=== PATIENT | male | born 1960 | race Caucasian/White ===

== ENCOUNTER 2023-01-22 14:38 | Emergency (ER) | payer OTHER, MEDICARE, MEDICAID ==
[~2023-01-22] VITALS: Ht 190.5 cm; Wt 81.8 kg
[~2023-01-22 14:38] MED LIST: DIPH-423 PO; ESOM40CA PO; MULT-1085 PO; NO HOME MEDS; OMEP20CA15 PO; PANT40TA39 PO; PRED20TA PO
[2023-01-22 14:56] VITALS: BP 119/72
--- NOTE | 2023-01-22 15:08 | NUR ---
ATTEMPT EKG, PT NOT IN LOBBY OR TRIAGE. PER MEDIC, PT WAS SEEN WALKING OUT OF ER AND ACROSS THE STREET. NO EKG COMPLETED.
== END 2023-01-22 15:09 | disposition left against medical advice (07) ==
LOC: ER 14:38
DX: R07.9 Chest pain, unspecified (principal); Z53.21 Procedure and treatment not carried out due to patient leaving prior to being seen by health care provider

== ENCOUNTER 2023-01-23 12:32 | Emergency (ER) | payer OTHER, MEDICAID ==
--- NOTE | 2023-01-23 13:08 | NUR ---
NOT IN LOBBY.
--- NOTE | 2023-01-23 13:31 | NUR ---
NOT IN LOBBY.
== END 2023-01-23 16:26 | disposition left against medical advice (07) ==
LOC: ER 12:32
DX: F10.129 Alcohol abuse with intoxication, unspecified (principal); I11.9 Hypertensive heart disease without heart failure; K21.9 Gastro-esophageal reflux disease without esophagitis; G89.29 Other chronic pain; M54.9 Dorsalgia, unspecified; F41.9 Anxiety disorder, unspecified; F15.10 Other stimulant abuse, uncomplicated; Z88.2 Allergy status to sulfonamides; Z88.8 Allergy status to other drugs, medicaments and biological substances; Z59.00 Homelessness unspecified; Z56.0 Unemployment, unspecified; Y90.9 Presence of alcohol in blood, level not specified
CPT/HCPCS: 99283

== ENCOUNTER 2023-01-28 12:05 | Emergency (ER) | payer OTHER ==
[~2023-01-28] VITALS: Ht 190.5 cm; Wt 81.8 kg
[2023-01-28 12:10] VITALS: BP 131/98
[2023-01-28 12:44] LABS: BASOPHILS # (AUTO) 0.1 X10'3 (0-0.2); BASOPHILS % (AUTO) 0.7 % (0-1); EOSINOPHILS # (AUTO) 0.1 X10'3 (0-0.9); EOSINOPHILS % (AUTO) 0.9 % (0-6); HEMATOCRIT 47.9 % (42.0-52.0); HEMOGLOBIN 16.4 g/dl (14.0-17.9); LYMPHOCYTES # (AUTO) 2.7 X10'3 (1.1-4.8); LYMPHOCYTES % (AUTO) 34.1 % (21-51); MEAN CORPUSCULAR HEMOGLOBIN 31.5 PG (27.0-31.0); MEAN CORPUSCULAR HGB CONC 34.3 g/dL (33.0-36.5); MEAN CORPUSCULAR VOLUME 91.9 FL (78-98); MEAN PLATELET VOLUME 8.7 FL (7.4-10.4); MONOCYTES # (AUTO) 0.6 X10'3 (0-0.9); MONOCYTES % (AUTO) 7.8 % (2-12); NEUTROPHILS # (AUTO) 4.4 X10'3 (1.8-7.7); NEUTROPHILS % (AUTO) 56.5 % (42-75); PLATELET COUNT 141 X10'3 (140-440); RED BLOOD COUNT 5.22 X10'6 (4.70-6.10); RED CELL DISTRIBUTION WIDTH 14.5 % (11.5-14.5); WHITE BLOOD COUNT 7.8 X10'3 (4.5-11.0)
[2023-01-28 12:54] LABS: ALANINE AMINOTRANSFERASE 58 U/L (12-78); ALBUMIN 3.6 G/DL (3.4-5.0); ALBUMIN/GLOBULIN RATIO 1.2 (1.1-1.5); ALKALINE PHOSPHATASE 82 IU/L (46-116); ANION GAP 13 (8-16); BLOOD UREA NITROGEN 4 MG/DL (7-18); BUN/CREATININE RATIO 7.3 (10.0-20.0); CALCIUM 11.4 MG/DL (8.5-10.1); CHLORIDE 91 MMOL/L (99-107); CREATININE 0.55 MG/DL (0.60-1.10); GLUCOSE 260 MG/DL (70-104); SODIUM 131 MMOL/L (135-145); TOTAL CARBON DIOXIDE 27.3 MMOL/L (24-32); TOTAL PROTEIN 6.7 G/DL (6.4-8.2); eGFR > 90 ML/MIN
[2023-01-28 13:03] LABS: ASPARTATE AMINO TRANSFERASE 84 U/L (10-37); POTASSIUM 3.8 MMOL/L (3.5-5.1)
== END 2023-01-28 12:52 | disposition left against medical advice (07) ==
LOC: ER 12:05
DX: R07.9 Chest pain, unspecified (principal); Z53.21 Procedure and treatment not carried out due to patient leaving prior to being seen by health care provider
CPT/HCPCS: 36415; 71045; 80053; 83880; 84484; 85025; 93005; 99281; J7030

== ENCOUNTER 2023-02-01 09:44 | Emergency (ER) | payer BC, MEDICAID ==
[~2023-02-01] VITALS: Ht 190.5 cm; Wt 79.0 kg
[2023-02-01 09:46] VITALS: BP 130/88
[2023-02-01] MEDS ORDERED: normal saline 1000ml 1,000 ML IV ONE (10:30)
[2023-02-01] MEDS ORDERED: insulin Lispro (HumaLOG) vial - multi-dose SQ SCH ×2 (10:30→11:35)
--- NOTE | 2023-02-01 11:47 | NUR ---
dcd NS order.
--- NOTE | 2023-02-01 12:39 | NUR ---
Spoke with smith to see if insurance can replace patient's wheelchair, NAN states it is not due for reoplacement yet and that he needs to [facility].
== END 2023-02-01 12:42 | disposition home or self-care (01) ==
LOC: ER 09:46
DX: S09.90XA Unspecified injury of head, initial encounter (principal); R73.9 Hyperglycemia, unspecified; I10 Essential (primary) hypertension; J44.9 Chronic obstructive pulmonary disease, unspecified; K21.9 Gastro-esophageal reflux disease without esophagitis; F15.20 Other stimulant dependence, uncomplicated; Z88.2 Allergy status to sulfonamides; Z56.0 Unemployment, unspecified; Z59.00 Homelessness unspecified; W19.XXXA Unspecified fall, initial encounter; Y93.89 Activity, other specified; Y92.89 Other specified places as the place of occurrence of the external cause; Y99.8 Other external cause status
CPT/HCPCS: 70450; 82948; 99284; J1815; 96372

== ENCOUNTER 2023-02-11 09:31 | Emergency (ER) | payer BC, MEDICAID ==
[~2023-02-11] VITALS: Ht 190.5 cm; Wt 84.1 kg
[2023-02-11 09:33] VITALS: BP 159/107
--- NOTE | 2023-02-11 09:46 | NUR ---
Pt arrived w/ clothes that were socked in urine. Pt was asissted into clean clothes. Clothing was placed into bags.
--- NOTE | 2023-02-11 09:55 | NUR ---
[facility]. ETA 15-20 MINS
== END 2023-02-11 10:11 | disposition home or self-care (01) ==
LOC: ER 09:32
DX: Z00.00 Encounter for general adult medical examination without abnormal findings (principal); R52 Pain, unspecified; I10 Essential (primary) hypertension; J44.9 Chronic obstructive pulmonary disease, unspecified; K21.9 Gastro-esophageal reflux disease without esophagitis; F15.20 Other stimulant dependence, uncomplicated; Z88.2 Allergy status to sulfonamides; Z59.00 Homelessness unspecified; Z56.0 Unemployment, unspecified
CPT/HCPCS: 99284

== ENCOUNTER 2023-02-11 12:31 | Emergency (ER) | payer BC, MEDICAID ==
[~2023-02-11] VITALS: Ht 182.9 cm; Wt 72.7 kg
[2023-02-11 12:47] VITALS: BP 143/94
== END 2023-02-11 12:35 | disposition left against medical advice (07) ==
LOC: ER 12:32
DX: R07.89 Other chest pain (principal); Z53.21 Procedure and treatment not carried out due to patient leaving prior to being seen by health care provider
CPT/HCPCS: 93005; 99281

== ENCOUNTER 2023-02-18 05:59 | Emergency (ER) | payer BC, MEDICAID ==
[~2023-02-18] VITALS: Ht 190.5 cm; Wt 79.5 kg
--- NOTE | 2023-02-18 07:07 | NUR ---
I spent at least 15 minutes ealier to clean him up as patient covered with stool all over him including his wheelchair. Sponge bath done and sanitized patient hands with county historian. Patient has multiple wounds on his body. Patient was discouraged on touching his wounds.
[2023-02-18] MEDS ORDERED: normal saline 1000ML IV soln IVB ONE (07:40)
[2023-02-18] MEDS ORDERED: cephalexin 250mg capsule PO ONE (08:20)
[2023-02-18] MEDS ORDERED: pantoprazole 40mg Tablet.DR PO ONE (08:20)
[2023-02-18 08:26] LABS: ALANINE AMINOTRANSFERASE 45 U/L (12-78); ALBUMIN 3.1 G/DL (3.4-5.0); ALBUMIN/GLOBULIN RATIO 0.7 (1.1-1.5); ALKALINE PHOSPHATASE 111 IU/L (46-116); ANION GAP 11 (8-16); ASPARTATE AMINO TRANSFERASE 44 U/L (10-37); BILIRUBIN,TOTAL 0.4 MG/DL (0.1-1.0); BLOOD UREA NITROGEN 4 MG/DL (7-18); BUN/CREATININE RATIO 6.7 (10.0-20.0); CALCIUM 9.9 MG/DL (8.5-10.1); CHLORIDE 96 MMOL/L (99-107); GLUCOSE 256 MG/DL (70-104); POTASSIUM 3.9 MMOL/L (3.5-5.1); SODIUM 139 MMOL/L (135-145); TOTAL CARBON DIOXIDE 32.1 MMOL/L (24-32); TOTAL PROTEIN 7.3 G/DL (6.4-8.2); eGFR > 90 ML/MIN
[2023-02-18 08:53] LABS: BASOPHILS # (AUTO) 0.1 X10'3 (0-0.2); BASOPHILS % (AUTO) 0.8 % (0-1); EOSINOPHILS # (AUTO) 0.1 X10'3 (0-0.9); EOSINOPHILS % (AUTO) 1.1 % (0-6); HEMATOCRIT 49.9 % (42.0-52.0); HEMOGLOBIN 17.2 g/dl (14.0-17.9); LYMPHOCYTES % (AUTO) 26.1 % (21-51); MEAN CORPUSCULAR HGB CONC 34.4 g/dL (33.0-36.5); MEAN CORPUSCULAR VOLUME 93.2 FL (78-98); MEAN PLATELET VOLUME 7.4 FL (7.4-10.4); MONOCYTES # (AUTO) 0.7 X10'3 (0-0.9); MONOCYTES % (AUTO) 8.7 % (2-12); NEUTROPHILS # (AUTO) 4.7 X10'3 (1.8-7.7); NEUTROPHILS % (AUTO) 63.3 % (42-75); PLATELET COUNT 166 X10'3 (140-440); RED BLOOD COUNT 5.36 X10'6 (4.70-6.10); RED CELL DISTRIBUTION WIDTH 16.1 % (11.5-14.5); WHITE BLOOD COUNT 7.5 X10'3 (4.5-11.0)
--- NOTE | 2023-02-18 09:21 | NUR ---
Wound pictures taken with patient verbal permission.
--- NOTE | 2023-02-18 10:07 | NUR ---
Paged [facility] [employer] ER bed 1 RE: Felix Huizar. Dr. Jurado requesting a home health care social worker to see this patient when you get a chance. Thanks
[2023-02-18 10:43] VITALS: BP 120/87
[2023-02-18] MEDS ORDERED: CEPH-585 PO (13:13)
--- NOTE | 2023-02-18 13:38 | NUR ---
Repaged the Healthcare Specialist
== END 2023-02-18 13:50 | disposition home or self-care (01) ==
LOC: ER 05:59
DX: R07.89 Other chest pain (principal); L03.317 Cellulitis of buttock; L03.116 Cellulitis of left lower limb; L98.499 Non-pressure chronic ulcer of skin of other sites with unspecified severity; I10 Essential (primary) hypertension; J44.9 Chronic obstructive pulmonary disease, unspecified; K21.9 Gastro-esophageal reflux disease without esophagitis; F15.90 Other stimulant use, unspecified, uncomplicated; Z88.2 Allergy status to sulfonamides; Z59.00 Homelessness unspecified; Z56.0 Unemployment, unspecified
CPT/HCPCS: 36415; 71045; 80053; 83880; 84484; 85025; 93005; 96360; 99285; J7030

== ENCOUNTER 2023-02-19 10:55 | Emergency (ER) | payer BC, MEDICAID ==
[~2023-02-19 10:55] MED LIST changes: +CEPH-585 PO
== END 2023-02-19 11:31 | disposition left against medical advice (07) ==
LOC: ER 10:55
DX: R53.1 Weakness (principal); Z53.21 Procedure and treatment not carried out due to patient leaving prior to being seen by health care provider

== ENCOUNTER 2023-02-22 02:21 | Emergency (ER) | payer BC, MEDICAID ==
[~2023-02-22] VITALS: Ht 190.5 cm; Wt 81.8 kg
[2023-02-22 03:47] LABS: BASOPHILS % (AUTO) 0.6 % (0-1); EOSINOPHILS # (AUTO) 0.1 X10'3 (0-0.9); HEMATOCRIT 42.4 % (42.0-52.0); HEMOGLOBIN 14.6 g/dl (14.0-17.9); LYMPHOCYTES # (AUTO) 1.2 X10'3 (1.1-4.8); LYMPHOCYTES % (AUTO) 18.4 % (21-51); MEAN CORPUSCULAR HEMOGLOBIN 31.9 PG (27.0-31.0); MEAN CORPUSCULAR HGB CONC 34.3 g/dL (33.0-36.5); MEAN PLATELET VOLUME 7.1 FL (7.4-10.4); MONOCYTES # (AUTO) 0.5 X10'3 (0-0.9); MONOCYTES % (AUTO) 6.8 % (2-12); NEUTROPHILS # (AUTO) 4.9 X10'3 (1.8-7.7); NEUTROPHILS % (AUTO) 73.2 % (42-75); PLATELET COUNT 167 X10'3 (140-440); RED BLOOD COUNT 4.56 X10'6 (4.70-6.10); RED CELL DISTRIBUTION WIDTH 15.8 % (11.5-14.5); WHITE BLOOD COUNT 6.7 X10'3 (4.5-11.0)
[2023-02-22 04:11] LABS: ALANINE AMINOTRANSFERASE 38 U/L (12-78); ALBUMIN 2.6 G/DL (3.4-5.0); ALBUMIN/GLOBULIN RATIO 0.7 (1.1-1.5); ALKALINE PHOSPHATASE 98 IU/L (46-116); ANION GAP 9 (8-16); ASPARTATE AMINO TRANSFERASE 59 U/L (10-37); BILIRUBIN,TOTAL 0.5 MG/DL (0.1-1.0); BLOOD UREA NITROGEN 2 MG/DL (7-18); BUN/CREATININE RATIO 3.4 (10.0-20.0); CALCIUM 9.1 MG/DL (8.5-10.1); CHLORIDE 97 MMOL/L (99-107); CREATININE 0.58 MG/DL (0.60-1.10); GLUCOSE 260 MG/DL (70-104); SODIUM 140 MMOL/L (135-145); TOTAL CARBON DIOXIDE 34.2 MMOL/L (24-32); TOTAL PROTEIN 6.2 G/DL (6.4-8.2); eGFR > 90 ML/MIN
[2023-02-22] MEDS ORDERED: POTA-207 PO (04:30)
[2023-02-22] MEDS ORDERED: POTASSIUM BICARB 20meq eff tab 20 MEQ TABLET.EFF PO ONE (04:30)
[2023-02-22 04:48] VITALS: BP 110/62
== END 2023-02-22 04:51 | disposition home or self-care (01) ==
LOC: ER 02:22
DX: R07.89 Other chest pain (principal); E87.6 Hypokalemia; I10 Essential (primary) hypertension; J44.9 Chronic obstructive pulmonary disease, unspecified; K21.9 Gastro-esophageal reflux disease without esophagitis; F15.20 Other stimulant dependence, uncomplicated; Z88.2 Allergy status to sulfonamides; Z59.00 Homelessness unspecified; Z56.0 Unemployment, unspecified
CPT/HCPCS: 36415; 71045; 80053; 83880; 84484; 85025; 93005; 99285

== ENCOUNTER 2023-05-19 23:33 | Emergency (ER) | payer BC, MEDICAID ==
[~2023-05-19] VITALS: Ht 193 cm; Wt 77.3 kg
[2023-05-19 23:40] VITALS: BP 125/74; PULSE 96; TEMP 98.1
[2023-05-19 23:56] VITALS: O2SAT 97
[2023-05-19 23:57] VITALS: RESP 18
--- NOTE | 2023-05-20 00:15 | NUR ---
PT REFUSING LAB DRAW.
--- NOTE | 2023-05-20 00:16 | NUR ---
PROVIDER NOTIFIED OF REFUSAL.
[2023-05-20] MEDS ORDERED: mag hydrox/Alum hydrox/simeth 30ml oral suspension PO ONE (02:15)
[2023-05-20] MEDS ORDERED: LIDOcaine Viscous 15ml cup MM ONE (02:15)
[2023-05-20] MEDS ORDERED: pantoprazole 40mg Tablet.DR PO ONE (02:15)
[2023-05-20] MEDS ORDERED: insulin regular, human 10 units/0.1 ml syringe SQ ONE (02:15)
== END 2023-05-20 04:04 | disposition home or self-care (01) ==
LOC: ER 23:34
DX: K21.9 Gastro-esophageal reflux disease without esophagitis (principal); R10.9 Unspecified abdominal pain; I10 Essential (primary) hypertension; J44.9 Chronic obstructive pulmonary disease, unspecified; E11.9 Type 2 diabetes mellitus without complications; F17.200 Nicotine dependence, unspecified, uncomplicated; F15.90 Other stimulant use, unspecified, uncomplicated; Z88.2 Allergy status to sulfonamides; Z88.8 Allergy status to other drugs, medicaments and biological substances; Z79.2 Long term (current) use of antibiotics; Z79.899 Other long term (current) drug therapy
CPT/HCPCS: 71045; 82948; 93005; 99284; J1815

== ENCOUNTER 2023-05-20 18:44 | Emergency (ER) | payer BC, MEDICAID ==
[2023-05-20] MEDS ORDERED: normal saline 1000ML IV soln IVB ONE (19:00)
== END 2023-05-20 19:31 | disposition left against medical advice (07) ==
LOC: ER 18:44
DX: F10.129 Alcohol abuse with intoxication, unspecified (principal); Y90.9 Presence of alcohol in blood, level not specified; R73.9 Hyperglycemia, unspecified; I11.9 Hypertensive heart disease without heart failure; K21.9 Gastro-esophageal reflux disease without esophagitis; E11.9 Type 2 diabetes mellitus without complications; G89.29 Other chronic pain; M54.9 Dorsalgia, unspecified; F31.9 Bipolar disorder, unspecified; F15.10 Other stimulant abuse, uncomplicated; Z59.00 Homelessness unspecified; Z56.0 Unemployment, unspecified
CPT/HCPCS: 93005; 99283

== ENCOUNTER 2023-05-22 08:52 | Emergency (ER) | payer BC, MEDICAID ==
[~2023-05-22] VITALS: Ht 193 cm; Wt 78.2 kg
[2023-05-22 08:55] VITALS: BP 141/87; PULSE 95; RESP 14; TEMP 98.2; O2SAT 95
[2023-05-22] MEDS ORDERED: normal saline 1000ml 1,000 ML IV ONE (09:20)
[2023-05-22] MEDS ORDERED: pantoprazole 40MG/NS 100ML BAG 100 ML IV SCH (09:25)
[2023-05-22 09:31] LABS: BASOPHILS % (AUTO) 0.4 % (0-1); EOSINOPHILS % (AUTO) 0.3 % (0-6); HEMATOCRIT 43.4 % (42.0-52.0); HEMOGLOBIN 14.7 g/dl (14.0-17.9); LYMPHOCYTES # (AUTO) 1.3 X10'3 (1.1-4.8); LYMPHOCYTES % (AUTO) 16.8 % (21-51); MEAN CORPUSCULAR HEMOGLOBIN 30.4 PG (27.0-31.0); MEAN CORPUSCULAR VOLUME 89.3 FL (78-98); MEAN PLATELET VOLUME 7.6 FL (7.4-10.4); MONOCYTES # (AUTO) 0.3 X10'3 (0-0.9); NEUTROPHILS # (AUTO) 6.1 X10'3 (1.8-7.7); NEUTROPHILS % (AUTO) 78.5 % (42-75); PLATELET COUNT 170 X10'3 (140-440); RED BLOOD COUNT 4.86 X10'6 (4.70-6.10); RED CELL DISTRIBUTION WIDTH 13.8 % (11.5-14.5); WHITE BLOOD COUNT 7.8 X10'3 (4.5-11.0)
[2023-05-22 10:02] LABS: ALANINE AMINOTRANSFERASE 30 U/L (12-78); ALBUMIN 3.3 G/DL (3.4-5.0); ALKALINE PHOSPHATASE 95 IU/L (46-116); ANION GAP 17 (8-16); ASPARTATE AMINO TRANSFERASE 35 U/L (10-37); BILIRUBIN,TOTAL 0.5 MG/DL (0.1-1.0); BLOOD UREA NITROGEN 3 MG/DL (7-18); CALCIUM 8.5 MG/DL (8.5-10.1); CHLORIDE 91 MMOL/L (99-107); GLUCOSE 396 MG/DL (70-104); SODIUM 134 MMOL/L (135-145); TOTAL CARBON DIOXIDE 26.4 MMOL/L (24-32); TOTAL PROTEIN 6.7 G/DL (6.4-8.2); eCRCL 139 ML/MIN; eGFR > 90 ML/MIN
[2023-05-22 10:10] LABS: POTASSIUM 2.9 MMOL/L (3.5-5.1)
[2023-05-22 10:11] LABS: ETHANOL 299 MG/DL (<10); LIPASE < 50 U/L (73-393); MAGNESIUM 1.6 MG/DL (1.5-2.4)
[2023-05-22 10:35] LABS: ACETONE NEGATIVE (NEGATIVE)
--- NOTE | 2023-05-22 10:36 | NUR ---
pt refusing vs. saying "im tired of that fucking shit"
[2023-05-22] MEDS ORDERED: insulin regular, human 10 units/0.1 ml syringe IV ONE (11:10)
[2023-05-22] MEDS ORDERED: magnesium 2GM in 50ml NS 50 ML IV ONE ×2 (11:10→14:25)
[2023-05-22] MEDS ORDERED: thiamine 100mg/ml 2ml inj. IV ONE (11:10)
--- NOTE | 2023-05-22 11:46 | NUR ---
PT. REFUSED REGULAR INSULIN 10 UNITS ORDERED. STATES "[address] ME". DR. BUENO NOTIFIED
--- NOTE | 2023-05-22 14:19 | NUR ---
Pt refusing vitals.
== END 2023-05-22 14:59 | disposition still patient (30) ==
LOC: ER 08:52
DX: F10.129 Alcohol abuse with intoxication, unspecified (principal); E87.6 Hypokalemia; E83.42 Hypomagnesemia; E11.65 Type 2 diabetes mellitus with hyperglycemia; I11.0 Hypertensive heart disease with heart failure; K21.9 Gastro-esophageal reflux disease without esophagitis; J44.9 Chronic obstructive pulmonary disease, unspecified; F31.9 Bipolar disorder, unspecified; G89.29 Other chronic pain; M54.9 Dorsalgia, unspecified; Y90.9 Presence of alcohol in blood, level not specified
CPT/HCPCS: 36415; 71045; 80053; 80320; 82009; 82948; 83690; 83735; 84484; 85025; 93005; 96365; 96366; 96367; 96375; 99285; C9113; J3411; J3475; J7030

== ENCOUNTER 2023-05-22 17:53 | Emergency (ER) | payer BC, MEDICAID ==
[~2023-05-22] VITALS: Ht 175.3 cm; Wt 90.0 kg
[2023-05-22 18:05] VITALS: BP 141/81; PULSE 105; RESP 18; O2SAT 98
== END 2023-05-22 18:16 | disposition left against medical advice (07) ==
LOC: ER 17:54
DX: F10.129 Alcohol abuse with intoxication, unspecified (principal); Z53.21 Procedure and treatment not carried out due to patient leaving prior to being seen by health care provider; Y90.9 Presence of alcohol in blood, level not specified
CPT/HCPCS: 99281

== ENCOUNTER 2023-05-23 05:06 | Emergency (ER) | payer BC, MEDICAID ==
[~2023-05-23] VITALS: Ht 182.9 cm; Wt 77.3 kg
[2023-05-23 05:53] VITALS: BP 180/93; PULSE 114; RESP 19; TEMP 97.9; O2SAT 98
[2023-05-23] MEDS ORDERED: normal saline 1000ML IV soln IV ONE (06:30)
--- NOTE | 2023-05-23 06:55 | NUR ---
PT ELOPED. PT STATING "NOBODY IS GOING TO HELP ME AND IM NOT GOING TO HERE." I EXPLAINED THE DR HAD SEEN HIM AND IS PUTTING IN ORDERS. PT GOT IN HIS WC AND LEFT.
== END 2023-05-23 07:04 | disposition left against medical advice (07) ==
LOC: ER 05:06
DX: M79.10 Myalgia, unspecified site (principal); F10.129 Alcohol abuse with intoxication, unspecified; I11.0 Hypertensive heart disease with heart failure; J44.9 Chronic obstructive pulmonary disease, unspecified; K21.9 Gastro-esophageal reflux disease without esophagitis; G89.29 Other chronic pain; M54.9 Dorsalgia, unspecified; F31.9 Bipolar disorder, unspecified; Z88.2 Allergy status to sulfonamides; F15.10 Other stimulant abuse, uncomplicated; Z79.899 Other long term (current) drug therapy
CPT/HCPCS: 82948; 87040; 99283

== ENCOUNTER 2023-06-10 16:32 | Emergency (ER) | payer BC, MEDICAID ==
[~2023-06-10] VITALS: Ht 193 cm; Wt 180.0 kg
--- NOTE | 2023-06-10 17:04 | NUR ---
RN UNABLE TO COMPLETE TRIAGE D/T PT NOT VERBALLY RESPONDING OR OBEYING COMMANDS AT THIS TIME. RN WILL NOTIFY DR SANCHEZ.
--- NOTE | 2023-06-10 17:06 | NUR ---
DR SANCHEZ AT BEDSIDE AND CALLED OUT TO PT AND PT MOVED HIS HEAD IN RESPONSE. PT SMELLS STRONGLY OF ALCOHOL/SOILED CLOTHES/MULTIPLE WOUNDS/VSS. PER DR SANCHEZ STRIP PT AND OBTAIN IV/PT WILL BE GOING FOR CT.
--- NOTE | 2023-06-10 17:09 | NUR ---
RN UNABLE TO CONFIRM ALLERGIES D/T PT NOT RESPONDING VERBALLY ALTHOUGH HE DOES RESPOND TO VERBAL STIMULI. DR SANCHEZ AT BEDSIDE. PER DR SANCHEZ OBTAIN IV/GET ACCUCK/PT WILL BE WORKED UP ALOC.
--- NOTE | 2023-06-10 17:17 | NUR ---
MANDI RN WILL ASSIST BY STRIPING PT/OBTAINING IV/WHILE THIS RN CALLS REPORT FOR ANOTHER PT TO BE MOVED TO THE FLOOR.
--- NOTE | 2023-06-10 17:30 | NUR ---
RN WAS ABLE TO COMPLETE A LIMITED ASSESSMENT D/T PT STATUS. SEE NOTES.
--- NOTE | 2023-06-10 17:43 | NUR ---
RN CALLED CT TO NOTIFY THEM THAT PT IS READY FOR CT.
--- NOTE | 2023-06-10 18:52 | NUR ---
RN ATTEMPTED TO HOOK PT UP TO VS MACHINE AND HE STARTED TO PUSH BACK AT RN AND CALLING OUT "NINA" THEN CONT TO PUSH AND SAY "NO BODY IS GONNA FUCKING PUSH ME". LAB AT BEDSIDE. RN NOTIFIED LAB THAT PT IS SHOWING AGGRESSIVE BEHAVIOR AND IT MAY BE SAFE TO WAIT. RN WILL NOTIFY ONCOMING RN OF PT BEHAVIOR.
[2023-06-10] MEDS ORDERED: ziprasidone IM 20mg inj **IM only IM ONE (19:55)
[2023-06-10 21:59] LABS: BASOPHILS # (AUTO) 0.1 X10'3 (0-0.2); BASOPHILS % (AUTO) 1.7 % (0-1); EOSINOPHILS % (AUTO) 0.7 % (0-6); HEMATOCRIT 39.6 % (42.0-52.0); HEMOGLOBIN 13.2 g/dl (14.0-17.9); LYMPHOCYTES # (AUTO) 1.9 X10'3 (1.1-4.8); LYMPHOCYTES % (AUTO) 38.9 % (21-51); MEAN CORPUSCULAR HEMOGLOBIN 30.2 PG (27.0-31.0); MEAN CORPUSCULAR HGB CONC 33.4 g/dL (33.0-36.5); MEAN CORPUSCULAR VOLUME 90.5 FL (78-98); MEAN PLATELET VOLUME 6.6 FL (7.4-10.4); MONOCYTES # (AUTO) 0.3 X10'3 (0-0.9); MONOCYTES % (AUTO) 5.3 % (2-12); NEUTROPHILS # (AUTO) 2.6 X10'3 (1.8-7.7); NEUTROPHILS % (AUTO) 53.4 % (42-75); PLATELET COUNT 334 X10'3 (140-440); RED BLOOD COUNT 4.38 X10'6 (4.70-6.10); RED CELL DISTRIBUTION WIDTH 15.9 % (11.5-14.5)
[2023-06-10 22:11] LABS: ALANINE AMINOTRANSFERASE 21 U/L (12-78); ALBUMIN 2.5 G/DL (3.4-5.0); ALBUMIN/GLOBULIN RATIO 0.6 (1.1-1.5); ALKALINE PHOSPHATASE 122 IU/L (46-116); ANION GAP 12 (8-16); ASPARTATE AMINO TRANSFERASE 23 U/L (10-37); BILIRUBIN,TOTAL 0.2 MG/DL (0.1-1.0); BLOOD UREA NITROGEN 1 MG/DL (7-18); CALCIUM 8.8 MG/DL (8.5-10.1); CHLORIDE 101 MMOL/L (99-107); CREATININE 0.51 MG/DL (0.60-1.10); ETHANOL 173 MG/DL (<10); GLUCOSE 247 MG/DL (70-104); POTASSIUM 3.3 MMOL/L (3.5-5.1); SODIUM 141 MMOL/L (135-145); TOTAL CARBON DIOXIDE 28.3 MMOL/L (24-32); TOTAL PROTEIN 6.7 G/DL (6.4-8.2); eCRCL 182 ML/MIN; eGFR > 90 ML/MIN
[2023-06-10 23:11] VITALS: BP 105/69; PULSE 101; RESP 16; TEMP 98.2; O2SAT 98
== END 2023-06-10 23:12 | disposition home or self-care (01) ==
LOC: ER 16:32
DX: F10.129 Alcohol abuse with intoxication, unspecified (principal); I10 Essential (primary) hypertension; J44.9 Chronic obstructive pulmonary disease, unspecified; K21.9 Gastro-esophageal reflux disease without esophagitis; E11.9 Type 2 diabetes mellitus without complications; F15.90 Other stimulant use, unspecified, uncomplicated; Z88.2 Allergy status to sulfonamides; Z88.8 Allergy status to other drugs, medicaments and biological substances; Z79.2 Long term (current) use of antibiotics; Z79.899 Other long term (current) drug therapy
CPT/HCPCS: 36415; 70450; 71045; 80053; 80320; 82948; 84484; 85025; 93005; 96372; 99285; J3486